=== PATIENT | female | born 1965 | race Caucasian/White ===

== ENCOUNTER 2017-10-06 07:14 | Day surgery (SDC) | payer BC ==
[2017-10-01 15:51] VITALS: BMI 33.0
--- NOTE | 2017-10-05 13:46 | HP ---
HISTORY AND PHYSICAL DATE OF SERVICE: 10/06/2017 Evelia Prieto is a 52-year-old patient seen with progressive left shoulder pain. We discussed treatment options. She elected to proceed with arthroscopy. Consent was obtained. PAST MEDICAL HISTORY: Hypertension. PAST SURGICAL HISTORY: Breast reduction, carpal tunnel release, section, tonsillectomy. DAILY MEDICATIONS: 1. Lisinopril. 2. Motrin. 3. Dixon. ALLERGIES: SULFA. SOCIAL HISTORY: Patient denies tobacco use. PHYSICAL EVALUATION OF THE LEFT SHOULDER: Flexion 120 degrees, abduction 80 degrees, external rotation is 50 degrees with weakness and pain. Tenderness along the anterior lateral acromion rotator cuff insertion site. Impingement sign positive at 90 degrees. Drop-arm sign is positive. Distal neurovascular exam is intact. RADIOGRAPHS OF THE LEFT SHOULDER: Revealed a type 2 anterior acromion, acromioclavicular joint osteoarthritis and cystic changes of the greater tuberosity. Left shoulder ultrasound report revealed a partial rotator cuff tear. IMPRESSION: 1. Left shoulder impingement with rotator cuff tear. 2. Left shoulder acromioclavicular joint osteoarthritis. 3. Hypertension. PLAN: Left shoulder arthroscopy with subacromial decompression, probable arthroscopic rotator cuff repair, possible Jax procedure and debridement. MMODL / IJN: [id number] /
[~2017-10-06 07:14] MED LIST: ceFAZolin IN SWFI 2 GM/20 ML SYRINGE IVP ONE
[2017-10-06] MEDS ORDERED: ONDANSETRON 4 MG/2 ML VIAL ONE (08:36)
[2017-10-06] MEDS ORDERED: KETAMINE 10 MG/ML 20 ML VIAL ONE (09:09)
[2017-10-06] MEDS ORDERED: LACTATED RINGERS 1,000 ML IV ONE ×2 (09:09→10:00)
[2017-10-06] MEDS ORDERED: LABETALOL 5 MG/ML VIAL MDV ONE (09:09)
[2017-10-06] MEDS ORDERED: LIDOCAINE 1% INJ 10MG/ML (20 ML MDV) ONE (09:09)
[2017-10-06] MEDS ORDERED: MIDAZOLAM 2 MG/2 ML VIAL ONE (09:09)
[2017-10-06] MEDS ORDERED: HYDROmorphone (PF) 1 MG/ML ONE (09:09)
[2017-10-06] MEDS ORDERED: PROPOFOL 10 MG/ML 20 ML VIAL IV ONE (09:09)
[2017-10-06] MEDS ORDERED: SUCCINYLCHOLINE CHLORIDE 100 MG/5 ML SYR IV ONE (09:09)
[2017-10-06] MEDS ORDERED: fentaNYL (PF) 50 MCG/ML 2 ML AMP ONE (09:09)
[2017-10-06] MEDS ORDERED: BUPIVACAINE (PF) 0.5% 30 ML VIAL INTRAARTIC ONE (10:35)
[2017-10-06 11:09] VITALS: TEMP 97.1
--- NOTE | 2017-10-06 11:21 | P.OP ---
Date of Procedure: 10/06/17 Preoperative Diagnosis: Left shoulder impingement Postoperative Diagnosis: 1. Left shoulder rotator cuff tear 2. Left shoulder impingement 3. Left shoulder acromioclavicular joint osteoarthritis 4. Left shoulder superficial labral tear Procedure(s) Performed: 1. Left shoulder arthroscopic rotator cuff repair 2. Left shoulder arthroscopic subacromial decompression 3. Left shoulder arthroscopic Jax procedure 4. Left shoulder arthroscopic debridement labral tear Implants: 4Arthrex swivel lock anchors Anesthesia: DEMETRIOA, local Surgeon: J Luis Capone Roving Changer #1: Wagner Adkins Estimated Blood Loss (ml): 5 Pathology: none sent Condition: stable Disposition: PACU Indications for Procedure: 52-year-old patient seen with progressive left shoulder pain. After treatment options were discussed, she elected to proceed with arthroscopy. Operative Findings: saúl description of procedure Description of Procedure: The patient was taken to the operative suite. The patient underwent a general anesthetic by the department of anesthesia. The patient was placed into a lateral position and secured. There was appropriate padding of the bony prominence. Left shoulder was then prepped and draped in normal sterile orthopedic fashion. We placed the extremity in 10 pounds of longitudinal traction. A posterior incision was now made for a posterior working portal site. The trocar and cannula were inserted into the glenohumeral joint. Arthroscopy was initiated. Spinal needle was now inserted anteriorly, to ascertain the anterior working portal site. An incision was now made in that area, a trocar was inserted followed by a probe. There was obvious absence long head biceps tendon with evidence of an old complete tear. There was superficial tearing noted of the anterior labrum. There was mild grade 1 chondromalacia changes of the humeral head with no osteochondral tears present. There was an obvious rotator cuff tear clearly visualized from the glenohumeral side. I debrided the superficial labral tear down to stable tissue. The residual labrum was stable. Instruments were now removed from the glenohumeral joint. Utilizing the posterior working portal site, the trocar and cannula were inserted into the subacromial space. Arthroscopy initiated. I made an incision 2 fingerbreadths lateral to the acromion. I introduced my trocar followed by my ArthroCare ablator. I now began ablating thick subacromial bursal tissue, which exposed the undersurface of the anterior acromion. This was diminished subacromial space. There was a very prominent anterior acromion. A motorized bur was introduced and a subacromial decompression was performed. I also excised some osteophytes off the inferior aspect of the distal clavicle. The AC joint was visualized and noted to be fairly arthritic. Our motorized bur was introduced in the anterior portal site and a Jax procedure was performed without difficulty, decompressing the AC joint nicely. I turned my attention to the rotator cuff. There was a 22.5 cm tear along the midportion distal supraspinatus. It was retracted about 0.5 cm. But freely mobile over the footprint. I debrided the margins gained down to stable tendon tissue. I abraded the footprint with a motorized bur. I created an assessory portal site off the lateral acromion. I introduced 2 medial row anchors with 2 sutures each. I now passed all 8 limbs of suture through good bites of rotator cuff tendon. We now crisscrossed the sutures and introduced 2 lateral anchors which compressed the tendon along the footprint very nicely. The residual suture limbs were clipped. The repair was stable. I injected 1 mL Renue intra- articular. Instruments now removed from the portal sites. All portal sites were approximated with nylon suture. I injected the subacromial space with half percent plain Marcaine. Sterile dressings were applied followed by a shoulder immobilizer. 4 Arthrex SwiveLock anchors were utilized as implants. Manolo SUTTON assisted with the procedure. The patient was awakened, transferred to a bed, and taken to recovery in stable condition.
[2017-10-06] MEDS ORDERED: HYDROmorphone 1 MG/ML 1 ML SYRINGE IVP ONE (11:36)
[2017-10-06] MEDS ORDERED: KETOROLAC 30 MG/ML 1 ML VIAL IVP ONE (11:50)
[2017-10-06] MEDS ORDERED: HYDROcodone/APAP 7.5-325MG 1 EACH TAB PO ONE (12:55)
[2017-10-06] MEDS ORDERED: LACTATED RINGERS 1,000 ML IV SCH (13:25)
[2017-10-06] MEDS ORDERED: DEXAMETHASONE SOD PHOSPHATE 10 MG/ML 1 ML VIAL IV ONE (13:25)
[2017-10-06] MEDS ORDERED: HYDROmorphone 0.5 MG/0.5 ML SYRINGE IVP PRN (13:25)
[2017-10-06] MEDS ORDERED: MIDAZOLAM 2 MG/2 ML VIAL IV PRN (13:25)
[2017-10-06] MEDS ORDERED: ONDANSETRON 4 MG/2 ML VIAL IVP ONE (13:25)
[2017-10-06 13:29] VITALS: BP 129/81; PULSE 80; RESP 16
== END 2017-10-06 13:52 | disposition home or self-care (01) ==
LOC: OR 07:14
PROVIDERS: ATTEND Orthopaedic Surgery
DX: M75.102 Unspecified rotator cuff tear or rupture of left shoulder, not specified as traumatic (principal); M75.42 Impingement syndrome of left shoulder; M19.012 Primary osteoarthritis, left shoulder; S43.432A Superior glenoid labrum lesion of left shoulder, initial encounter; X58.XXXA Exposure to other specified factors, initial encounter; M94.212 Chondromalacia, left shoulder; I10 Essential (primary) hypertension; Z79.1 Long term (current) use of non-steroidal anti-inflammatories (NSAID); Z79.891 Long term (current) use of opiate analgesic; Z79.899 Other long term (current) drug therapy; Z88.2 Allergy status to sulfonamides
CPT/HCPCS: 29826; 29827; 29824; C1713 ×2; C1894; C1765; J1885; J1170; J0690